=== PATIENT | female | born 1955 | race Caucasian/White ===

== ENCOUNTER 2018-05-09 07:00 | Inpatient (IN) ==
[2018-05-09] MEDS ORDERED: Metoprolol Tartrate 25 MG Tablet PO ONE (08:15)
[2018-05-09] MEDS ORDERED: Chlorhexidine Gluconate 2% 1 Pack (2 Cloths) TOPICAL ONE (08:15)
[2018-05-09] MEDS ORDERED: Sodium Chlor 0.9% Inj 500 ML IV.CONT ONE (08:15)
[2018-05-09] MEDS ORDERED: Chlorhexidine 4% Topical 120 APPLIC/120 ML Bottle TOPICAL SCH (08:45)
[2018-05-09] MEDS ORDERED: Sodium Chlor 0.9% Inj 80 ML, Bupivacaine Liposo PF 1.3% Inj 20 ML P-ARTICULR SCH ×2 (09:00)
[2018-05-09] MEDS ORDERED: ceFAZolin 2 GM Premix Inj 2 GM/50 ML PIGGYBACK IV.SIG SCH (09:00)
[2018-05-09] MEDS ORDERED: SODIUM CHLOR 0.9% IV.SIG SCH ×2 (09:00→12:00)
[2018-05-09] MEDS ORDERED: TRANEXAMIC ACID IV.SIG SCH ×2 (09:00→12:00)
[2018-05-09] MEDS ORDERED: fentaNYL Citrate Inj 100 MCG/2 ML Ampul ONE ×2 (09:06→09:50)
[2018-05-09] MEDS ORDERED: Ropivacaine 0.5% PF Inj 20 ML Vial ONE (09:06)
[2018-05-09] MEDS ORDERED: Aluminum/Magnesium/Simethacone Susp 30 ML UDC PO PRN (09:21)
[2018-05-09] MEDS ORDERED: Morphine Inj 4 MG/ML Vial IV.PUSH PRN (09:21)
[2018-05-09] MEDS ORDERED: Tranexamic Acid Inj 0 MG in Sodium Chlor 0.9% Inj 100 ML IV.SIG ONE (09:21)
[2018-05-09] MEDS ORDERED: Post-op Orders (for Pharmacy) OTHER STA (09:21)
[2018-05-09] MEDS ORDERED: Acetaminophen 325 MG Tablet PO PRN (09:21)
[2018-05-09] MEDS ORDERED: Bisacodyl 10 MG Supp RECTAL PRN (09:21)
--- NOTE | 2018-05-09 09:24 | P.DCO ---
- Physical Therapy Physical Therapy: Gait training Knee: Total knee, Protocol: Left, Gait training, Full weight bearing Left Lower Extremity Weight Bearing: Weight bearing as tolerated Left Lower Extremity Range of Motion: Active ROM (Active, active assisted, passive range of motion. Range of motion goal is 0 degrees extension to 135 degrees of flexion.) - Nursing Nursing: Dressing changes (Do not remove Dermabond Prineo (the tape that is directly on the wound).Leave the Optifoam dressing in place for 7 days. After this, daily dressing changes will be done taking care to avoid injuring or removing the Dermabond Prineo.) Dressing changes: Other (Do not remove Dermabond Prineo (the tape that is directly on the wound).Leave the Optifoam dressing in place for 7 days. After this, daily dressing changes will be done taking care to avoid injuring or removing the Dermabond Prineo.) - Case Management Consult Case Management Consult-Home Health: Yes - Certification Need for Home Health services: I have seen patient Kailyn Duke on 05/09/18. My clinical findings support the need for the requested home health care services because: Need for Home Health Services: Limited mobility due to disease progression, Limited ability to care for self, High risk of falls Homebound Certification: I certify that my clinical findings support that this patient is homebound because: Homebound Certification: Post-op weakness, Unsteady gait/balance, Unsafe to leave home unassisted
[2018-05-09] MEDS ORDERED: Famotidine PF Inj 20 MG/2 ML Vial ONE (09:50)
[2018-05-09] MEDS ORDERED: Propofol Inj 500 MG/50 ML Vial ONE (09:50)
--- NOTE | 2018-05-09 12:57 | P.OP ---
- Preoperative Diagnosis (1) Primary osteoarthritis of left knee - Postoperative Diagnosis (1) Primary osteoarthritis of left knee Date of procedure: 05/09/18 Procedure: Left total knee arthroplasty using [place] Triathlon prosthesis (hybrid: Cemented femur, uncemented patella and tibia) Anesthesia: regional (Adductor canal block), local (Exparel), spinal Surgeon: Dev Hernández MD Stenographer Secretary: MARCO A Naqvi Estimated blood loss (mL): 250 Tourniquet time (min): 0 Pathology: none sent Operation and Findings: Indications and Findings: This 63-year-old woman has had a 4-year history of left knee pain beginning in [place]. This is worsened substantially more recently to the point that she has an ambulation tolerance of 1/2 mile. She has difficulty standing from a seated position after sitting for some time. She has medial pain that radiates down the leg. She has not responded to conservative measures including nonsteroidal anti-inflammatory agents, analgesics, intra-articular corticosteroids, physical therapy and ambulatory aids. Physical findings showed genu varum with laxity in the medial compartment , medial tenderness and crepitation throughout the entire range of motion. X- rays showed loss of articular cartilage to [id number] in the medial compartment, osteophytes and subchondral sclerosis medially. Operative findings: There was severe osteoarthritis in the left knee with loss of articular cartilage to exposed subchondral bone in the medial compartment, irregularity in the patellofemoral compartment and less so in the lateral compartment. There were osteophytes medially, laterally and in the patellofemoral joint. There was subchondral sclerosis in the medial compartment. The prosthesis used was a [place] Triathlon prosthesis. The femur was a size 4, left, cruciate retaining, cemented. The tibial baseplate was a size 4 Tritanium with a 9 mm cruciate retaining X3 polyethylene spacer. The patella was a size 32 mm asymmetric Tritanium backed. The cement was Simplex. The patient was brought to the clean-air operating suite after administration of a regional anesthetic by adductor canal block. A spinal anesthetic was administered. The position was supine with a small bolster under the hip on the operative side. A pneumatic tourniquet was applied to the upper thigh. The lower extremity was prepped with alcohol, Hibiclens and ChloraPrep and draped in the usual manner with the knee draped free. An appropriate timeout procedure was carried out. An incision was made from about 3 fingerbreadths above the superior medial pole of patella down the tibial tubercle on the medial side. The incision was deepened through the subcutaneous tissue to the retinacular structures which were exposed medially and laterally. A medial retinacular incision was made from the superior medial pole of patella down the tibial tubercle and up into the quadriceps tendon, splitting it longitudinally in the medial one third. The patella was reflected. The infrapatellar fat pad was debulked. The anterior cruciate ligament was excised. Medial and lateral meniscectomies were initiated. Fenestrations were made in the distal femur and proximal tibia for intramedullary referencing guides. The distal femoral cutting guide and jig were assembled for a 5, 8 mm cut. When this was fit into position,the cutting block was stabilized with pins. The jig was removed. The distal femoral cut was completed with the oscillating saw. The sizing guide was positioned in place along Whitesides line and the epicondylar axis and stabilized with pins. The femoral size was determined as noted above. The 4-in-1 cutting block was positioned in place. Anterior and posterior cuts were made followed by posterior and anterior chamfer cuts taking care to prevent injury to ligamentous structures. Osteophytes were trimmed from the distal femur. A bone plug was placed into the fenestration of the distal femur. The proximal tibia was exposed. The medial and lateral meniscectomies were completed. The proximal tibial cutting guide was positioned in place and stabilized with a pin for rotation. The depth of cut was verified with a stylus off the high side. The cutting block was stabilized with pins. The jig was removed. The depth of cut was verified and adjusted appropriately with the use of the spacer block. The proximal tibial cut was made with the oscillating saw taking care to prevent injury to neurovascular and ligamentous structures. Proximal tibial bone was removed. Local anesthetic was administered with Exparel in the posterior capsule. The tibial baseplate trial was positioned in place. After verifying the appropriate size, the base plate trial was positioned in place along with its spacer. The femoral component was impacted into place. The alignment was checked. The tibial baseplate was pinned in place on the tibia. Attention was directed to the patella. The patella drill guide was positioned in place for the appropriate sized patella. Patellar drilling was then carried out. The trial patella was positioned in place. The knee was taken through a range of motion. At about 135 degrees there was some instability of the femoral component. For this reason, the implants were removed and the tibial cut was redone with the use of the extramedullary cutting guide. A repeat trial was carried out. This showed persistence of the instability; therefore an additional 1 mm of posterior bone was removed. It was felt that this would be the greatest amount of slope that could be allowed. The repeat range of motion was similar but somewhat more stable. For this reason it was elected to cement the femoral component. The knee was taken through a range of motion which was easily 0 extension to 135 degrees. The patella trial was removed. The femoral drill holes were made. The femoral trials were removed. The tibial spacer was removed. A bone plug was placed into the proximal tibia. The tibial punch was impacted through the proximal tibial punch guide. This was all removed followed by placement of the tibial drill guide. The tibial drill holes were made. The guide was removed. The cut ends of bone were cleaned with pulse lavage. The tibial baseplate was impacted into place and seated appropriately. The spacer was inserted. The cut ends of bone of the femur were cleaned with pulse lavage. When these were completely dried Simplex cement was injected into the end of the femur with the pressurization from the cement gun. The posterior surface of the femoral component was coated with cement as well. The the femoral component was impacted into place and seated appropriately. Excess cement was trimmed from the femur. The patella component was seated with the patellar vice and tightened appropriately. The cement was allowed to cure. The remainder of the Exparel was injected throughout the knee as a local anesthetic. Drains were brought out the superior lateral aspect of the suprapatellar pouch. Wound closure commenced using 0 Vicryl interrupted [id number] sutures for the capsular and fascial structures, 2-0 Vicryl interrupted simple sutures with buried knots for the subcutaneous tissues and 4-0 Monocryl, continuous subcuticular closure for the skin. The knee was taken through a range of motion which was comparable to the previous range of motion with excellent stability in flexion and extension and appropriate patellofemoral tracking. The wound was dressed with Dermabond Prineo followed by an OPTifoam AG dressing. Sterile soft roll with a cooling pad and Ady bandage from the base of the toes to mid thigh were applied. Patient was transferred from the operating room to the recovery room in satisfactory condition having tolerated procedure well. Counts were correct. Specimens: None. Estimated blood loss: 250 mL
--- NOTE | 2018-05-09 14:09 | XR ---
EXAM DATE: 05/09/2018 1:50 PM EST AGE/SEX: 63 years / Female INDICATIONS: Post op left knee surgery CLINICAL DATA: This is the patient's initial encounter. Patient reports that signs and symptoms have been present for 1 day and indicates a pain score of 0/10. MEDICAL/SURGICAL HISTORY: None. None. COMPARISON: POI, MR KNEE W/O CONTRAST, LEFT, 02/20/2015. . FINDINGS: A total knee arthroplasty is noted. There is a small amount of subcutaneous air, and a drain is seen anterior to the knee. Tibial and femoral components appear well seated. CONCLUSION: Postsurgical changes left knee arthroplasty. Electronically signed by: Shahzad Singh MD Board Certified Radiologist 05/09/2018 2:08 PM EST
[2018-05-09] MEDS: Ketorolac Inj 30 MG/ML (IVP) Vial IV.PUSH SCH ×2 (14:30→22:18)
[2018-05-09] MEDS ORDERED: ceFAZolin 1 GM Premix Inj 1 GM/50 ML PIGGYBACK IV.SIG ONE (15:32)
[2018-05-09] MEDS ORDERED: *morphine SULFATE 4 MG/ML PERIprocedure ONLY ONE (15:32)
[2018-05-09] MEDS: ceFAZolin Inj 1 GM in Sodium Chlor 0.9% Inj 100 ML IV.SIG SCH ×2 (15:39→22:21)
--- NOTE | 2018-05-09 15:42 | P.CON ---
History of Present Illness Service: [facility] Consult date: 05/09/18 Requesting Physician: Dev Hernández Reason for Consult: Medical Evaluation and Treatment Primary Care Provider: Vicky Ayala Chief Complaint: knee pain History of Present Illness: 63-year-old female with past medical history significant for CKD, HLD, fatty liver, chronic back pain, and osteoarthritis who failed multiple conservative treatments for left knee osteoarthritis, now admitted to [facility] for left total knee arthroplasty by Dr. Hernández. Hospitalist consulted for medical evaluation and treatment. Patient is seen postoperatively in the recovery room. She reports feeling well. She has no specific medical complaints including no fever/chills, headache, chest pain, shortness of breath , or abdominal complaints. Pain is well controlled. Home meds will be restarted. Discussed with RN, no acute concerns. Review of Systems All other systems reviewed negative except as stated in HPI [facility] - History History Provided By: Patient - Medical History Medical History: Medical History (Last Reviewed 05/09/18 @ 15:33 by Deirdre Solis) Back pain CKD (chronic kidney disease) Cardiomyopathy Fatty liver High cholesterol Joint pain Kidney stones Neck pain Osteoarthritis Plantar fasciitis Urinary incontinence - Surgical History Surgical History: Surgical History (Last Reviewed 05/09/18 @ 15:33 by Deirdre Solis) H/O lithotripsy History of arthroscopy of left knee History of liver biopsy - Family History Family History: Family History (Last Updated 05/09/18 @ 15:33 by Deirdre Solis) Mother Heart disease Father Heart disease - Social History I have reviewed the patient's Social History: Yes - Tobacco History Second Hand Smoke Exposure: No Smoking Status: Never smoker - Alcohol History How Often Do You Have a Drink Containing Alcohol: 2 to 4 times a month (Prior daily alcohol use times 30 years, now socially over the past 1 year) - Substance Use History Substance History: No History of Abuse - Travel History Recent Travel in the [place] Within the Last 8 Weeks: No Recent Travel Out of the Country Within the Last 8 Weeks: No Medications and Allergies Active Medications: Active Medications Acetaminophen (Tylenol) 650 mg PO Q6H PRN PRN Reason: Pain Less Than 3 On Scale Hydrocodone Bitart/Acetaminophen (Severn 7.5/325) 1 tab PO Q4H PRN PRN Reason: PAIN SCALE 4 TO 6 MODERATE Hydrocodone Bitart/Acetaminophen (Severn 7.5/325) 2 tab PO Q6H PRN PRN Reason: PAIN SCALE 7 TO 10 SEVERE Al Hydrox/Mg Hydrox/Simethicone (Mag-Al Plus Susp Liq) 30 ml PO Q6H PRN PRN Reason: INDIGESTION Al Hydroxide/Mg Hydroxide (Milk Of Magnesia Liq) 30 ml PO BID PRN PRN Reason: Mild Constipation Ascorbic Acid (Vitamin C) 500 mg PO DAILY [facility] Aspirin (Aspirin Chew) 81 mg PO BID [facility] Bisacodyl (Dulcolax Supp) 10 mg RECTAL DAILY PRN PRN Reason: SEVERE CONSITIPATION Chlorhexidine Gluconate (Hibiclens 4% Topical) 1 applicatio TOPICAL ONCE [facility] Stop: 05/13/18 08:44 Last Admin: 05/09/18 08:40 Dose: 1 applicatio Diphenhydramine HCl (Benadryl) 25 mg PO Q6H PRN PRN Reason: ITCHING Lactated Ringer's (Lr 1000 Ml Inj) 1,000 mls @ 30 mls/hr IV.CONT .Q24H ONE Stop: 05/10/18 08:14 Last Admin: 05/09/18 08:30 Dose: 30 mls/hr Sodium Chloride (Ns Inj) 500 mls @ 30 mls/hr IV.CONT .[id number] ONE Stop: 05/10/18 00:54 Last Admin: 05/09/18 09:03 Dose: Not Given Tranexamic Acid 851 mg/ Sodium (Chloride) 108.51 mls @ 200 mls/hr IV.SIG [employer]GERS AND ACQUISITIONS MANAGER [facility] Stop: 05/09/18 18:00 Last Infusion: 05/09/18 15:02 Dose: Infused Cefazolin Sodium/Dextrose (Ancef 2 Gm Premix Inj) 2 gm in 50 mls @ 100 mls/hr IV.SIG [employer] ACQUISITIONS MANAGER [facility] Stop: 05/13/18 08:59 Last Infusion: 05/09/18 10:40 Dose: Infused Cefazolin Sodium 1 gm/ Sodium (Chloride) 100 mls @ 200 mls/hr IV.SIG Q6H [facility] Stop: 05/10/18 04:29 Lactated Ringer's (Lr 1000 Ml Inj) 1,000 mls @ 80 mls/hr IV.CONT .[id number] [facility] Last Admin: 05/09/18 13:35 Dose: 80 mls/hr Ketorolac Tromethamine (Toradol Inj) 15 mg IV.PUSH Q6H ANABELLE Stop: 05/11/18 08:01 Last Admin: 05/09/18 14:30 Dose: 15 mg Lactulose (Lactulose Liq) 30 ml PO DAILY PRN PRN Reason: SEVERE CONSITIPATION Miscellaneous Information (Misc Nursing Information) 1 each OTHER UNSCH PRN PRN Reason: SEE LABEL COMMENTS Stop: 05/10/18 13:16 Morphine Sulfate (Morphine Inj) 2 mg IV.PUSH Q3H PRN PRN Reason: BREAKTHROUGH PAIN Ondansetron HCl (Zofran Odt) 4 mg PO Q6H PRN PRN Reason: NAUSEA OR VOMITING Senna/Docusate Sodium (Paulette-Colace) 1 tab PO BID [facility] Sennosides (Senokot) 17.2 mg PO BID PRN PRN Reason: Moderate Constipation Sodium Chloride (Ns Flush) 2 ml IV.FLUSH BID [facility] Sodium Chloride (Ns Flush) 2 ml IV.FLUSH PRN PRN PRN Reason: FLUSH AFTER USING IV ACCESS Zolpidem Tartrate (Ambien) 5 mg PO HS PRN PRN Reason: INSOMNIA Allergies Allergy/AdvReac Type Severity Reaction Status Date / Time codeine Allergy Severe Nausea/Vomi Verified 05/09/18 08:35 ting Home Medications Medication Instructions Recorded Confirmed Type ascorbic acid (vitamin C) [Vitamin 500 mg PO DAILY 04/28/18 05/09/18 History C] cranberry 500 mg PO DAILY 04/28/18 05/09/18 History zolpidem [Ambien] 5 mg PO HS PRN 04/28/18 05/09/18 History [id number]-acetaminophen 1 dose PO HS 05/09/18 05/09/18 History [Vicks NyQuil Severe Cold-Flu] ibuprofen [Advil] 200 mg PO PRN PRN 05/09/18 05/09/18 History Physical Exam Vital signs: Vital Signs 05/09/18 08:48 05/09/18 09:02 05/09/18 13:18 Temperature 98.0 F 97.8 F Pulse Rate 80 78 78 Respiratory Rate 20 14 Blood Pressure 135/83 94/55 L Pulse Oximetry 98 98 96 05/09/18 13:30 05/09/18 13:45 05/09/18 14:00 Temperature Pulse Rate 76 74 73 Respiratory Rate 14 21 17 Blood Pressure 104/60 104/64 107/63 Pulse Oximetry 97 99 99 05/09/18 14:15 05/09/18 15:00 Temperature Pulse Rate 69 74 Respiratory Rate 14 21 Blood Pressure 105/64 114/70 Pulse Oximetry 99 97 Intake & Output 05/08/18 05/09/18 05/09/18 18:59 06:59 18:59 Intake Total 2108.02 / 2108.02 Output Total 250 / 250 Balance 1858.02 / 1858.02 Weight 85.1 kg Intake: IV 267.02 / 267.02 Cyklokapron Inj 851 MG In NS 217.02 / 217.02 Inj 100 ML @ 200 mls/hr IV.SIG [employer] AND ACQUISITIONS MANAGER ANABELLE Rx#:[id number] Ancef 2 GM Premix Inj 2 gm In 50 / 50 50 ml @ 100 mls/hr IV.SIG [employer] AND ACQUISITIONS MANAGER ANABELLE Rx#:[id number] Anesthesia Amount 1841 / 1841 Output: Estimated Blood Loss 250 / 250 Other: Weight On Admission 85.1 kg Narrative: GENERAL: Well-nourished, well-developed pleasant female patient in [facility]. SKIN: Warm and dry. No rash. HEENT: Normocephalic. Atraumatic. Pupils equal and round. Mucous membranes pink and moist. NECK: Supple. Trachea midline. CARDIOVASCULAR: Regular rate and rhythm. No murmur appreciated. RESPIRATORY: No accessory muscle use. Clear to auscultation. Breath sounds equal bilaterally. GASTROINTESTINAL: Abdomen soft, non-tender, nondistended. Normoactive bowel sounds x4. MUSCULOSKELETAL: No obvious deformities. Extremities without clubbing, cyanosis , or edema. LLE with surgical dressing, CDI, Hemovac in place. 2+ bilateral pedal pulses. Bilateral lower extremity sensation equal and intact. NEUROLOGICAL: Awake and alert. No obvious cranial nerve deficits. Moving all extremities spontaneously. Normal speech. PSYCHIATRIC: Appropriate mood and affect; insight and judgment normal. Results - Labs Labs: Laboratory Results - last 24 hr 05/09/18 08:30 Blood Type A Positive Blood Type Recheck Required Antibody Screen Negative - Imaging Impressions Knee X-Ray 05/09/18 09:20 CONCLUSION: Postsurgical changes left knee arthroplasty. Assessment and Plan - Plan 63-year-old female with past medical history significant for CKD, HLD, fatty liver, chronic back pain, and osteoarthritis who failed multiple conservative treatments for left knee osteoarthritis, now admitted to [facility] for left total knee arthroplasty by Dr. Hernández. Hospitalist consulted for medical evaluation and treatment. Osteoarthritis s/p left TKA: Surgery done by Dr. Hernández on 05/09/18 -Continue management per orthopedics -Pain control with Severn prn, IV morphine prn, with bowel regimen -PT consulted, progress to full weightbearing per ortho -DVT prophylaxis with aspirin 81mg bid per ortho -Plan to d/c home with [facility]HC per ortho -Check post op H&H in am CKD, stage II: chronic -avoid nephrotoxins -check BMP in am -outpatient f/up Hyperlipidemia/Hypertriglyceridemia: chronic -patient reports trying diet control for now -continue outpatient f/up with PCP Fatty Liver: chronic -avoid hepatotoxins DVT Prophylaxis: on aspirin per ortho Discharge Planning: Discharge planning per ortho.
[2018-05-09] MEDS ORDERED: DEXTROMETHORPHAN PO SCH (21:00)
[2018-05-09] MEDS ORDERED: [UNRECOGNIZED DRUG - OTHER] PO SCH (21:00)
[2018-05-09] MEDS ORDERED: ACETAMINOPHEN PO SCH (21:00)
[2018-05-09] MEDS ORDERED: PHENYLEPHRINE PO SCH (21:00)
[2018-05-09] MEDS ORDERED: DOXYLAMINE PO SCH (21:00)
[2018-05-09] MEDS ORDERED: Zolpidem Tartrate 5 MG Tablet PO PRN (21:00)
[2018-05-09] MEDS: Senna/Docusate Sodium 8.6/50 MG Tablet PO SCH (22:18)
[2018-05-10] MEDS: Ketorolac Inj 30 MG/ML (IVP) Vial IV.PUSH SCH ×2 (02:45→08:55)
[2018-05-10] MEDS: ceFAZolin Inj 1 GM in Sodium Chlor 0.9% Inj 100 ML IV.SIG SCH (03:51)
[2018-05-10 05:17] LABS: Hematocrit 30.3 % (35.0-46.0); Hemoglobin 10.1 gm/dL (11.6-15.3)
[2018-05-10 05:40] LABS: Calcium 8.2 mg/dL (8.5-10.1); Carbon Dioxide 27.4 meq/L (21.0-32.0); Potassium 4.6 meq/L (3.5-5.1)
--- NOTE | 2018-05-10 06:05 | P.PNOP ---
Subjective Interval history: Postop day #1 She is doing well. She has minimal complaints related to the knee at this time. Physical therapy reports that the ambulation distance was 110 feet. The range of motion was 0 degrees of extension to 80 degrees of flexion. Physical Exam Vital signs: Vital Signs 05/09/18 08:48 05/09/18 09:02 05/09/18 13:18 Temperature 98.0 F 97.8 F Pulse Rate 80 78 78 Respiratory Rate 20 12 Blood Pressure 135/83 94/55 L Pulse Oximetry 98 98 97 05/09/18 13:30 05/09/18 13:45 05/09/18 14:00 Temperature Pulse Rate 76 74 73 Respiratory Rate 14 21 17 Blood Pressure 104/60 104/64 107/63 Pulse Oximetry 97 99 99 05/09/18 14:15 05/09/18 15:00 05/09/18 16:00 Temperature 97.6 F Pulse Rate 69 74 75 Respiratory Rate 14 21 15 Blood Pressure 105/64 114/70 116/67 Pulse Oximetry 99 97 99 05/09/18 19:35 05/10/18 01:45 Temperature 99.0 F 97.9 F Pulse Rate 74 78 Respiratory Rate 17 17 Blood Pressure 106/57 L 112/63 Pulse Oximetry 94 L 97 Intake & Output 05/09/18 05/09/18 05/10/18 06:59 18:59 06:59 Intake Total 2417.02 / 2417.02 1100 / 1100 Output Total 340 / 340 110 / 110 Balance 2077.02 / 2077.02 990 / 990 Weight 85.1 kg Intake: IV 456.02 / 456.02 1100 / 1100 LR 1000 mL Inj 1,000 ML @ 80 89 / 89 1000 / 1000 mls/hr IV.CONT .[id number] ANABELLE Rx# :[id number] Cyklokapron Inj 851 MG In NS 217.02 / 217.02 Inj 100 ML @ 200 mls/hr IV.SIG POULTRY BUYER ANABELLE Rx#:[id number] Ancef 2 GM Premix Inj 2 gm In 50 / 50 50 ml @ 100 mls/hr IV.SIG POULTRY BUYER ANABELLE Rx#:[id number] Ancef Inj 1 GM In NS Inj 100 ML 100 / 100 100 / 100 @ 200 mls/hr IV.SIG Q6H ANABELLE Rx #:[id number] Oral 120 / 120 Anesthesia Amount 1841 / 1841 Output: Estimated Blood Loss 250 / 250 Wound Drainage 110 / 110 # 1 Left Knee Hemovac 110 / 110 Other: # Voids 1 # Incontinent Voids 1 Date of Last Bowel Movement 05/09/18 05/09/18 Weight On Admission 85.1 kg Narrative: She is resting comfortably, supine in bed. The dressing is dry and intact. Her neurovascular status is intact. Results - Labs CBC & Chem 7: 05/10/18 04:55 05/10/18 04:55 Laboratory Results - last 24 hr 05/09/18 05/10/18 05/10/18 08:30 04:55 04:55 Hgb 10.1 L Hct 30.3 L Sodium 142 Potassium 4.6 Chloride 108 H Carbon Dioxide 27.4 Anion Gap 7 BUN 15 Creatinine 0.93 Estimated GFR 61 L Random Glucose 138 H Calcium 8.2 L Blood Type A Positive Blood Type Recheck Required Antibody Screen Negative - Imaging Impressions Knee X-Ray 05/09/18 09:20 CONCLUSION: Postsurgical changes left knee arthroplasty. - Procedures Left total knee arthroplasty using [place] Triathlon prosthesis (hybrid: Cemented femur and uncemented tibia and patella) on 05/09/2018. Assessment and Plan - Ortho Post Op Day # 1 - Problem List (1) Status post total left knee replacement not using cement Code(s): Z96.652 - Presence of left artificial knee joint Status: Acute Plan: Continue postop care and PT. - Assessment and Plan Condition: Good. Orthopedically stable. DVT prophylaxis: TEDs, aspirin, sequentials. Discharge plans: Home with home health care. An appointment was scheduled through the office. Prescriptions: Hag[place] 7.5/325; Patient is having significant pain caused by a total knee replacement which will last more than 3 days. Trial of Tylenol has not helped. I believe that it is medically necessary to treat patients pain because it is affecting patients ability to participate in postoperative rehabilitation and perform activities of daily living in a comfortable and efficient manner. I have checked the [facility] database prior to completing the prescription.
--- NOTE | 2018-05-10 06:24 | P.DS ---
Date of admission: 05/09/18 07:51 Primary care physician: Vicky Ayala Attending physician on discharge: Dev Hernández Anticipated date of discharge: 05/10/18 Brief History from admission: This 63-year-old woman has had long-standing right knee pain nonresponsive to conservative measures including anti-inflammatory agents, analgesics, exercise and the like as documented in the history and physical examination. She had a significantly limited ambulation tolerance with pain on activities and pain on motion. Physical findings showed genu varum with tenderness in the medial compartment especially. There is medial laxity and crepitation throughout the entire range of motion. Radiographic findings were consistent with osteoarthritis with loss of articular cartilage to [id number] in the medial compartment, medial subchondral sclerosis and tricompartmental osteophytes. DS: Diagnosis - Discharge Diagnosis (1) Status post total left knee replacement not using cement Status: Acute Diagnosis: Principal (2) Primary osteoarthritis of left knee Status: Chronic Diagnosis: Principal DS: Medications - Discharge Medications Prescriptions: hydrocodone-acetaminophen 1 tab PO Q4H PRN 7 Days #42 tab PRN Reason: Pain DS: Summary Hospital Course: The patient was admitted as noted above. The above noted operative procedure was carried out that day. Preoperatively prophylactic antibiotics were administered Ancef according to protocol. These were continued postoperatively. The patient also received tranexamic acid to help with hemostasis according to protocol. In the postanesthesia care unit mechanical methods of DVT prophylaxis in the form of OBED stockings and sequentials were initiated. Physical therapy was initiated on the day of surgery. On postoperative day #1 physical therapy continued. DVT prophylaxis with aspirin 81 mg twice daily was initiated at this time. The patient continued physical therapy throughout the hospitalization. The distance walked and range of motion improved throughout the hospitalization. The patient was discharged on postoperative day 1 with the disposition being to home with home health care. An appointment for follow-up was made prior to admission. - Time Spent with Patient Total time spent providing and/or coordinating discharge services: Less than 30 minutes - Quality: VTE Deep Vein Thrombosis/Pulmonary Embolism Present on Admission: No Exam Vital signs: Vital Signs 05/09/18 08:48 05/09/18 09:02 05/09/18 13:18 Temperature 98.0 F 97.8 F Pulse Rate 80 78 78 Respiratory Rate 20 12 Blood Pressure 135/83 94/55 L Pulse Oximetry 98 98 97 05/09/18 13:30 05/09/18 13:45 05/09/18 14:00 Temperature Pulse Rate 76 74 73 Respiratory Rate 14 21 17 Blood Pressure 104/60 104/64 107/63 Pulse Oximetry 97 99 99 05/09/18 14:15 05/09/18 15:00 05/09/18 16:00 Temperature 97.6 F Pulse Rate 69 74 75 Respiratory Rate 14 21 15 Blood Pressure 105/64 114/70 116/67 Pulse Oximetry 99 97 99 05/09/18 19:35 05/10/18 01:45 Temperature 99.0 F 97.9 F Pulse Rate 74 78 Respiratory Rate 17 17 Blood Pressure 106/57 L 112/63 Pulse Oximetry 94 L 97 Intake & Output 05/09/18 05/09/18 05/10/18 06:59 18:59 06:59 Intake Total 2417.02 / 2417.02 1100 / 1100 Output Total 340 / 340 110 / 110 Balance 2077.02 / 2077.02 990 / 990 Weight 85.1 kg Intake: IV 456.02 / 456.02 1100 / 1100 LR 1000 mL Inj 1,000 ML @ 80 89 / 89 1000 / 1000 mls/hr IV.CONT .[id number] [facility] Rx# :[id number] Cyklokapron Inj 851 MG In NS 217.02 / 217.02 Inj 100 ML @ 200 mls/hr IV.SIG [employer] [facility] Rx#:[id number] Ancef 2 GM Premix Inj 2 gm In 50 / 50 50 ml @ 100 mls/hr IV.SIG [employer] [facility] Rx#:[id number] Ancef Inj 1 GM In NS Inj 100 ML 100 / 100 100 / 100 @ 200 mls/hr IV.SIG Q6H [facility] Rx #:[id number] Oral 120 / 120 Anesthesia Amount 1841 / 1841 Output: Estimated Blood Loss 250 / 250 Wound Drainage 110 / 110 # 1 Left Knee Hemovac 110 / 110 Other: # Voids 1 # Incontinent Voids 1 Date of Last Bowel Movement 05/09/18 05/09/18 Weight On Admission 85.1 kg Narrative: She is resting comfortably, supine in bed. The dressing is dry and intact. Her neurovascular status is intact. Results Procedures completed during hospitalization: Left total knee arthroplasty using [employer] Triathlon prosthesis (hybrid: Cemented femur and uncemented tibia and patella) on 05/09/2018. Labs on day of discharge: Labs from last 24 hours 05/10/18 05/10/18 05/09/18 04:55 04:55 08:30 Hgb 10.1 L Hct 30.3 L Sodium 142 Potassium 4.6 Chloride 108 H Carbon Dioxide 27.4 Anion Gap 7 BUN 15 Creatinine 0.93 Estimated GFR 61 L Random Glucose 138 H Calcium 8.2 L Blood Type A Positive Blood Type Recheck Required Antibody Screen Negative - Impressions ITS Impressions Knee X-Ray 05/09/18 09:20 CONCLUSION: Postsurgical changes left knee arthroplasty. Discharge Plan - Discharge Disposition Patient Disposition: /Home Health Service - Discharge Condition Condition: Stable - Discharge Order Discharge Orders: Discharge Order (Routine); Ordered 05/10/18 Ordered By: Dev Hernández - Discharge Details Anticipated Discharge Date: 05/10/18 - Physicians Team Attending Provider: Dev Hernández Other Providers: Flores Figueroa MD - Rxs /Orders / Referrals /Forms Prescriptions: New aspirin 81 mg Tablet,Chewable 81 mg PO BID RF: 0 hydrocodone-acetaminophen 7.5-325 mg Tablet 1 tab PO Q4H PRN (Reason: Pain) 7 Days Qty: 42 RF: 0 Continue ascorbic acid (vitamin C) [Vitamin C] 500 mg Tablet 500 mg PO DAILY cranberry 500 mg Capsule 500 mg PO DAILY [id number]-acetaminophen [Vicks NyQuil Severe Cold-Flu] 6.25-5-10-325 mg/15 mL Liquid 1 dose PO HS ibuprofen [Advil] 200 mg Tablet 200 mg PO PRN PRN (Reason: Acute Pain) zolpidem [Ambien] 10 mg Tablet 5 mg PO HS PRN (Reason: Sleep) Referrals: Vicky Ayala [Other] - See Instructions Dev Hernández MD [Physician] - See Instructions - Discharge Instructions Patient Printed Instructions: Knee Replacement (DC)
[2018-05-10] MEDS: Senna/Docusate Sodium 8.6/50 MG Tablet PO SCH (08:55)
[2018-05-10] MEDS ORDERED: Non-Formulary Drug (Cranberry [Cranberry] 500 MG) PO SCH (09:00)
[2018-05-10] MEDS ORDERED: Ascorbic Acid 500 MG Tablet PO SCH (09:00)
--- NOTE | 2018-05-10 11:50 | P.PNIM ---
Subjective Interval history: Follow-up for osteoarthritis status post left total knee replacement, CKD, HLD, chronic back pain, and fatty liver. Patient seen and examined sitting in the chair, stated ready to go home. Family at bedside. Patient stated pain is controlled with pain medication and no pain at all if not moving. Patient stated she walked with therapy today in the hallway to the elevator without a problem. Patient stated eating well, without any nausea or vomiting. Patient denies any abdominal pain. Stated had a bowel movement yesterday however no bowel movement today. States that she had stool softeners ordered to be taken every day. Patient denies any headache or dizziness, chest pain or shortness of breath, denies any fever or chills. Physical Exam Vital signs: Vital Signs 05/09/18 13:18 05/09/18 13:30 05/09/18 13:45 Temperature 97.8 F Pulse Rate 78 76 74 Respiratory Rate 12 14 21 Blood Pressure 94/55 L 104/60 104/64 Pulse Oximetry 97 97 99 05/09/18 14:00 05/09/18 14:15 05/09/18 15:00 Temperature Pulse Rate 73 69 74 Respiratory Rate 17 14 21 Blood Pressure 107/63 105/64 114/70 Pulse Oximetry 99 99 97 05/09/18 16:00 05/09/18 19:35 05/09/18 20:00 Temperature 97.6 F 99.0 F Pulse Rate 75 74 Respiratory Rate 15 17 18 Blood Pressure 116/67 106/57 L Pulse Oximetry 99 94 L 05/10/18 01:45 05/10/18 04:35 05/10/18 08:00 Temperature 97.9 F 98.0 F 98.1 F Pulse Rate 78 75 68 Respiratory Rate 17 17 16 Blood Pressure 112/63 125/65 110/60 Pulse Oximetry 97 96 95 Intake & Output 05/09/18 05/10/18 05/10/18 18:59 06:59 18:59 Intake Total 2417.02 / 2417.02 1650 / 1650 Output Total 340 / 340 280 / 280 Balance 2077.02 / 2077.02 1370 / 1370 Weight 85.1 kg 85 kg Intake: IV 456.02 / 456.02 1100 / 1100 LR 1000 mL Inj 1,000 ML @ 80 89 / 89 1000 / 1000 mls/hr IV.CONT .[id number] [facility] Rx# :[id number] Cyklokapron Inj 851 MG In NS 217.02 / 217.02 Inj 100 ML @ 200 mls/hr IV.SIG [employer] [facility] Rx#:[id number] Ancef 2 GM Premix Inj 2 gm In 50 / 50 50 ml @ 100 mls/hr IV.SIG [employer] Rx#:[id number] Ancef Inj 1 GM In NS Inj 100 ML 100 / 100 100 / 100 @ 200 mls/hr IV.SIG Q6H [facility] Rx #:[id number] Oral 120 / 120 550 / 550 Anesthesia Amount 1841 / 1841 Output: Estimated Blood Loss 250 / 250 Wound Drainage 90 / 90 280 / 280 # 1 Left Knee Hemovac 90 / 90 280 / 280 Other: # Voids 1 2 # Incontinent Voids 1 Date of Last Bowel Movement 05/09/18 05/09/18 05/09/18 # Bowel Movements 0 Weight On Admission 85.1 kg Narrative: GENERAL: Well-developed, well-nourished, pleasant female sitting in the chair, in no acute distress SKIN: Warm and dry. HEAD: Atraumatic. Normocephalic. EYES: Pupils equal and round. No scleral icterus. No injection or drainage. ENT: No nasal bleeding or discharge. Mucous membranes pink and moist. NECK: Trachea midline. No JVD. CARDIOVASCULAR: Regular rate and rhythm. RESPIRATORY: No accessory muscle use. Clear to auscultation. Breath sounds equal bilaterally. GASTROINTESTINAL: Abdomen soft, non-tender, nondistended. Hepatic and splenic margins not palpable. MUSCULOSKELETAL: Extremities without clubbing, cyanosis. left knee incision dressed dry and intact no drainage noted. Edema noted NEUROLOGICAL: Awake and alert. No obvious cranial nerve deficits. Motor grossly within normal limits. Five out of 5 muscle strength in the arms and legs except left lower extremity with limited range of motion. Normal speech. PSYCHIATRIC: Appropriate mood and affect; insight and judgment normal. Results Labs CBC & Chem 7: 05/10/18 04:55 05/10/18 04:55 Imaging Imaging: Impressions Knee X-Ray 05/09/18 09:20 CONCLUSION: Postsurgical changes left knee arthroplasty. Procedures Procedures: Left total knee arthroplasty using [employer] Triathlon prosthesis ( hybrid: Cemented femur and uncemented tibia and patella) on 05/09/2018. Assessment and Plan (1) Status post total left knee replacement not using cement: Code(s): Z96.652 - Presence of left artificial knee joint Status: Acute (2) Primary osteoarthritis of left knee: Code(s): M17.12 - Unilateral primary osteoarthritis, left knee Status: Chronic Plan This is a 63-year-old female with past medical history significant for CKD, HLD , fatty liver, chronic back pain, and osteoarthritis who failed multiple conservative treatments for left knee osteoarthritis, now admitted to [facility] for left total knee arthroplasty by Dr. Hernández. Hospitalist consulted for medical evaluation and treatment. Osteoarthritis s/p left TKA: Surgery done by Dr. Hernández on 05/09/18 -Continue management per orthopedics -Pain control with [place] prn, IV morphine prn, with bowel regimen -PT consulted, progress to full weightbearing per ortho -DVT prophylaxis with aspirin 81mg bid per ortho -Plan to d/c home with [facility] per ortho -Check post op H&H in am Anemia Likely r/t blood loss from the surgery -recheck CBC -follow up with PCP in 3 days, discussed with patient CKD, stage II: chronic -avoid nephrotoxins -check BMP in am -outpatient f/up Hyperlipidemia/Hypertriglyceridemia: chronic -patient reports trying diet control for now -continue outpatient f/up with PCP Fatty Liver: chronic -avoid hepatotoxins DVT Prophylaxis: on aspirin per ortho Progress Note: Quality VTE Deep Vein Thrombosis/Pulmonary Embolism Present on Admission: No
== END 2018-05-10 14:31 | disposition home health service (06) | DRG 470 ==
LOC: HSDI 07:51 → N06 16:15
PROVIDERS: ADMIT Orthopaedic Surgery; ATTEND Orthopaedic Surgery
DX: D64.9 Anemia, unspecified; E78.5 Hyperlipidemia, unspecified; K76.0 Fatty (change of) liver, not elsewhere classified; E78.1 Pure hyperglyceridemia; M17.12 Unilateral primary osteoarthritis, left knee; N18.2 Chronic kidney disease, stage 2 (mild); E78.00 Pure hypercholesterolemia, unspecified; G89.29 Other chronic pain; M72.2 Plantar fascial fibromatosis; I42.9 Cardiomyopathy, unspecified; M54.9 Dorsalgia, unspecified; M21.169 Varus deformity, not elsewhere classified, unspecified knee
CPT/HCPCS: 73560; 80048; 85014; 85018; 86850; 86900; 86901; 94150; 97110; 97116; 97150; 97162; 97166; C1776; C9290; J0131; J0690; J1580; J1885; J2250; J2270; J2704; J2765; J2795; J3010; J7120